=== PATIENT | female | born 1970 | race Caucasian/White ===

== ENCOUNTER → 2019-04-07 | Outpatient (CLI) | payer OTHER ==
[~2019-04-07] MED LIST: ALBU90OI INH; ARIP15 PO; ATOR10; AZIT250 PO; BENZ100A PO; CEFU250 PO; CEPH500 PO; CIPR500 PO; CLIN300 PO; CODGUAEL PO; CRUTCH4 USE; DEPOPROVERA; FAMO20 PO; HYDACE5 PO; HYDPAM25 PO; IBUP800 PO; METO25ER; NAPR500 PO; PRED10 PO; PROCODE120 PO; PROM25 PO; RANI150; RANI150 PO; RISP1; RXCLIN PO; RXOXYACE PO; RXTRAM50 PO; TRAM50 PO
[2019-04-07 14:24] LABS: Candida species (DNA Probe) Negative (NEGATIVE); G. vaginalis (DNA Probe) Positive (NEGATIVE); T. vaginalis (DNA Probe) Negative (NEGATIVE)
[2019-04-11 15:07] LABS: HPV 16 Negative (Negative); HPV 18 Negative (Negative); HPV OTHER HR TYPES Negative (Negative)
== END | disposition home or self-care (01) ==
LOC: LAB SHORT 09:27 → LAB 09:27
PROVIDERS: Nurse Practitioner Family
DX: Z12.4 Encounter for screening for malignant neoplasm of cervix (principal); N89.8 Other specified noninflammatory disorders of vagina; E78.00 Pure hypercholesterolemia, unspecified
CPT/HCPCS: 36415; 80061; 87480; 87510; 87624; 87660; G0145

== ENCOUNTER 2022-11-08 03:48 | Emergency (ER) | payer OTHER ==
[~2022-11-08] VITALS: Ht 162.6 cm; Wt 50.4 kg
[2022-11-08 05:31] VITALS: BP 99/67
[2022-11-08] MEDS ORDERED: ALLEGRA ALLERG180 MG PO (06:00)
== END 2022-11-08 06:15 | disposition home or self-care (01) ==
LOC: ER 03:48
DX: J30.2 Other seasonal allergic rhinitis (principal); Z76.0 Encounter for issue of repeat prescription; Z88.0 Allergy status to penicillin; D64.9 Anemia, unspecified
CPT/HCPCS: 99281